=== PATIENT | female | born 1970 | race Caucasian/White ===

== ENCOUNTER 2018-06-17 09:42 | Emergency (ER) | payer OTHER ==
[~2018-06-17] VITALS: Ht 162.6 cm; Wt 68.0 kg
[~2018-06-17 09:42] MED LIST: KLOR-CON 10 ER10 MEQ PO; MECLIZINE HCL25 M1 PO; VALIUM5 MG PO
[2018-06-17 10:18] LABS: URINE BILIRUBIN NEGATIVE (Negative); URINE BLOOD NEGATIVE (Negative); URINE CLARITY CLEAR; URINE COLOR STRAW; URINE GLUCOSE-RANDOM NEGATIVE (Negative); URINE KETONES NEGATIVE (Negative); URINE LEUKOCYTES-REFLEX NEGATIVE (Negative); URINE NITRITE-REFLEX NEGATIVE (Negative); URINE PROTEIN NEGATIVE (Negative); URINE SPECIFIC GRAVITY <= 1.005 (1.005-1.030); URINE UROBILINOGEN 0.2 E.U./dl (0.2-1.0)
[2018-06-17 10:18] LABS: ABSOLUTE EOSINOPHILS 0.1 thou/uL (0.0-0.7); ABSOLUTE LYMPHOCYTES 1.6 thou/uL (0.8-5.3); ABSOLUTE MONOCYTES 0.3 thou/uL (0.0-1.2); ABSOLUTE NEUTROPHILS 3.5 thou/uL (1.6-8.1); BASOPHILS 0.8 %; EOSINOPHILS 1.7 %; HEMATOCRIT 41.1 % (37.0-47.0); LYMPHOCYTES 29.3 %; MCH 30.7 pg (26.0-34.0); MCV 90.3 fL (80.0-100.0); MONOCYTES 6.1 %; MPV 7.8 fl. (7.2-11.1); NUCLEATED RBCS 0 /100WBC; PLATELET COUNT* 262 thou/uL (150-400); POLYS 62.1 %; RBC 4.56 mil/uL (4.20-5.00); RDW-CV 13.2 % (10.5-14.5); WBC 5.6 thou/uL (4.0-11.0)
[2018-06-17 10:31] LABS: ALBUMIN 4.2 g/dL (3.4-5.0); ALKALINE PHOSPHATASE 74 U/L (46-116); ANION GAP 12 mmol/L (7-16); BUN 11 mg/dL (7-18); CALCIUM 9.1 mg/dL (8.5-10.1); CHLORIDE 104 mmol/L (98-107); CO2 26 mmol/L (21-32); GLUCOSE 101 mg/dL (70-99); LIPASE 89 U/L (73-393); POTASSIUM 4.1 mmol/L (3.5-5.1); SGOT 17 U/L (15-37); SGPT 28 U/L (30-65); SODIUM 142 mmol/L (136-145); TOTAL BILIRUBIN 0.4 mg/dL (<0.1-1.0); TOTAL PROTEIN 8.1 g/dL (6.4-8.2); TROPONIN-I LEVEL <0.06 ng/mL (<0.06)
[2018-06-17 11:24] VITALS: BP 119/83
--- NOTE | 2018-06-18 13:07 | EKG ---
[place] [address] ELECTROCARDIOGRAM REPORT Name: HANANE KNOX [id number] Admission: 06/17/18 Attend Phys: Discharge: 06/17/18 Date of : 72 Report #: [id number] THIS REPORT FOR: //name// [facility] ED Test Date: 2018-06-17 Test Time: 10:34:44 Pat Name: HANANE KNOX Department: Room: Gender: F [employer] Consultant: Bernardino ROLAND : 1970 Requested By: Ayo Blue Order Number: [id number] MD: Vikram Ortiz Measurements Intervals [place] Rate: 57 P: 51 KS: 146 QRS: 40 QRSD: 84 T: 45 QT: 397 QTc: 387 Interpretive Statements Sinus rhythm Borderline low voltage, extremity leads Compared to ECG 03/08/2011 22:42:13 No significant changes Electronically Signed On 06-18-2018 13:07:20 CDT by Vikram Ortiz [email or web address] <ELECTRONICALLY SIGNED> By: Vikram Ortiz MD, [facility] 06/18/18 1307 1034 1034 Vikram Ortiz MD, FACC /EPI
== END 2018-06-17 11:25 | disposition home or self-care (01) ==
LOC: M.ERS 09:42
PROVIDERS: Family Medicine
DX: R10.11 Right upper quadrant pain (principal)